=== PATIENT | female | born 1965 | race Caucasian/White ===

== ENCOUNTER 2017-01-26 10:48 | Day surgery (SDC) | payer BC ==
[~2017-01-26] VITALS: Ht 162.6 cm; Wt 107.0 kg
[~2017-01-26 10:48] MED LIST: ALBU18HF INH; BUDE10.22 INH; FEXO1TAB29 PO; MONT10TA6 PO; SERT100T PO
[2017-01-26 11:20] VITALS: BP 132/86
[2017-01-26] MEDS ORDERED: LACTATED RINGERS 1,000 ML IV SCH (11:22)
[2017-01-26] MEDS ORDERED: RANI150T4 PO (11:40)
[2017-01-26] MEDS ORDERED: PANT40TA5 PO (11:40)
[2017-01-26] MEDS ORDERED: DIPH25CA61 PO (11:40)
[2017-01-26] MEDS ORDERED: CETI1TAB6 PO (11:40)
[2017-01-26] MEDS ORDERED: TRINTELLIX PO (11:40)
[2017-01-26] MEDS ORDERED: EPINEPHRINE 1 MG/ML, 1ML ONE (12:16)
[2017-01-26] MEDS ORDERED: LIDOCAINE/PF 1%, 30ML ONE (12:16)
[2017-01-26] MEDS ORDERED: BACITRACIN OINT 500U/GM, 15 GM ONE (12:16)
[2017-01-26] MEDS ORDERED: COCAINE TOPICAL SOLN 4%, 4ML ONE (12:16)
[2017-01-26] MEDS ORDERED: OXYMETAZOLINE NASAL SPRAY 0.05%, 15ML ONE (12:16)
[2017-01-26] MEDS ORDERED: THROMBIN 5,000 UNIT VIAL TP ONE (12:16)
[2017-01-26] MEDS ORDERED: PROPOFOL 10 MG/ML, 20ML ONE ×2 (12:57)
[2017-01-26] MEDS ORDERED: SUCCINYLCHOLINE 20 MG/ML, 10ML ONE (12:58)
[2017-01-26] MEDS ORDERED: ROCURONIUM 10 MG/ML,10ML ONE (12:58)
[2017-01-26] MEDS ORDERED: KETAMINE 10 MG/ML, 20ML ONE (12:59)
[2017-01-26] MEDS ORDERED: CEFAZOLIN 1,000 MG ONE (13:01)
[2017-01-26] MEDS ORDERED: FENTANYL PF 100 MCG/2ML ONE (13:03)
[2017-01-26] MEDS ORDERED: MIDAZOLAM 1 MG/ML, 2ML ONE (13:03)
[2017-01-26] MEDS ORDERED: COCAINE TOPICAL SOLN 4%, 4ML TP ONE (13:35)
[2017-01-26] MEDS ORDERED: LIDOCAINE 1%-EPI 1:100K, 30ML INFIL ONE (13:36)
[2017-01-26] MEDS ORDERED: DEXAMETHASONE 4 MG/ML, 1ML ONE ×2 (13:38)
[2017-01-26] MEDS ORDERED: ONDANSETRON 2MG/ML, 2ML ONE (13:51)
[2017-01-26] MEDS ORDERED: METOCLOPRAMIDE 5 MG/ML, 2ML ONE (13:51)
[2017-01-26] MEDS ORDERED: METOCLOPRAMIDE 5 MG/ML, 2ML IV PRN (14:00)
[2017-01-26] MEDS ORDERED: LABETALOL 5MG/ML, 20ML IV PRN (14:00)
[2017-01-26] MEDS ORDERED: EPHEDRINE 50 MG/ML, 1ML IVPush PRN (14:00)
[2017-01-26] MEDS ORDERED: ALBUTEROL SULFATE 2.5 MG/3 ML NPPB PRN (14:00)
[2017-01-26] MEDS ORDERED: MEPERIDINE/PF 25MG/0.5ML IVPush PRN (14:00)
[2017-01-26] MEDS ORDERED: OXYcodone 5 MG/5 ML ORAL.SOL UDC PO PRN (14:00)
[2017-01-26] MEDS ORDERED: ACETAMINOPHEN 325 MG TABLET PO PRN (14:00)
[2017-01-26] MEDS ORDERED: hydrALAzine 20 MG/ML, 1ML IV PRN (14:00)
[2017-01-26] MEDS ORDERED: HYDROmorphone 1 MG/ML, 1ML IV PRN (14:00)
[2017-01-26] MEDS ORDERED: HYDROcodone/APAP 7.5-325MG/15ML UDC PO PRN (14:00)
[2017-01-26] MEDS ORDERED: PROMETHAZINE 25 MG/ML, 1ML IV PRN (14:00)
[2017-01-26] MEDS ORDERED: ONDANSETRON 2MG/ML, 2ML IVPush PRN (14:00)
[2017-01-26] MEDS ORDERED: METOPROLOL 1 MG/ML, 5ML IV PRN (14:00)
[2017-01-26] MEDS ORDERED: FENTANYL PF 100 MCG/2ML IV PRN (14:00)
[2017-01-26] MEDS ORDERED: OXYcodone 5 MG/5 ML ORAL.SOL UDC ONE (14:29)
[2017-01-26] MEDS ORDERED: MEPERIDINE/PF 25MG/0.5ML ONE (14:41)
== END 2017-01-26 18:00 | disposition home or self-care (01) ==
LOC: OUT 10:48
PROVIDERS: ATTEND Otolaryngology
DX: J34.89 Other specified disorders of nose and nasal sinuses (principal); G47.30 Sleep apnea, unspecified; Z88.5 Allergy status to narcotic agent; Z88.8 Allergy status to other drugs, medicaments and biological substances; Z91.040 Latex allergy status
CPT/HCPCS: 30140; 30520; J0171; J0330; J0690; J1100; J2175; J2250; J2405; J2704; J2765; J3010; J3490

== ENCOUNTER 2018-08-27 17:47 | Emergency (ER) | payer BC ==
[~2018-08-27] VITALS: Ht 162.6 cm; Wt 114.0 kg
[~2018-08-27 17:47] MED LIST changes: +CETI1TAB6 PO; +DIPH25CA61 PO; +PANT40TA5 PO; +RANI150T4 PO; +TRINTELLIX PO
[2018-08-27 17:57] VITALS: BP 152/82
[2018-08-27] MEDS ORDERED: HYDROcodone/APAP 5/325 TABLET ONE (18:28)
[2018-08-27] MEDS ORDERED: HYDROcodone/APAP 5/325 TABLET PO ONE (18:30)
--- NOTE | 2018-08-27 18:33 | NUR ---
PT MEDICATED PER ORDERS. UNDERSTANDS POC.
--- NOTE | 2018-08-27 19:11 | NUR ---
PT VERBALIZED SOME PAIN RELIEF AFTER NORCO. CRUTCHES AND CRUTCH TEACHING PROVIDED. D/C INSTRUCTIONS, MEDS & F/U APPT RV'WD WITH PT, SHE VERBALIZES UNDERSTANDING. RX GIVEN X2. ASSISTED PT OUT OF ED VIA WC WITH .
== END 2018-08-27 19:15 | disposition home or self-care (01) ==
LOC: ED 19:00
DX: S39.012A Strain of muscle, fascia and tendon of lower back, initial encounter (principal); S70.02XA Contusion of left hip, initial encounter; K21.9 Gastro-esophageal reflux disease without esophagitis; J45.909 Unspecified asthma, uncomplicated; W01.0XXA Fall on same level from slipping, tripping and stumbling without subsequent striking against object, initial encounter; Y93.89 Activity, other specified; Y92.89 Other specified places as the place of occurrence of the external cause; Y99.8 Other external cause status
CPT/HCPCS: 72110; 99283

== ENCOUNTER 2019-06-26 17:59 | Emergency (ER) | payer OTHER ==
[~2019-06-26] VITALS: Ht 165.1 cm; Wt 118.5 kg
--- NOTE | 2019-06-26 18:33 | NUR ---
TASK RN. PT STATES HX OF ASTHMA, STATES WORSE THE LAST 3 WEEKS. PT STATES SEEN AT [facility], ON PREDNISONE. PT WITH NO RESPIR DISTRESS, PROTECTING OWN AIRWAY WELL. PT STATE SOME CHEST TIGHNESS WELL. PT PLACED ON MONITORS, EKG COMPLETED. ERMD TO SEE.
[2019-06-26] MEDS ORDERED: ALBUTEROL/IPRATROPIUM 2.5MG/0.5MG, 3 ML ONE (19:12)
[2019-06-26 19:19] VITALS: BP 130/68
[2019-06-26] MEDS ORDERED: ALBUTEROL/IPRATROPIUM 2.5MG/0.5MG, 3 ML NPPB ONE (19:30)
== END 2019-06-26 20:20 | disposition home or self-care (01) ==
LOC: ED 18:53
DX: J45.41 Moderate persistent asthma with (acute) exacerbation (principal); R05 Cough; K21.9 Gastro-esophageal reflux disease without esophagitis; R06.00 Dyspnea, unspecified; R94.31 Abnormal electrocardiogram [ECG] [EKG]
CPT/HCPCS: 71045; 93005; 94640; 99283

== ENCOUNTER 2019-08-03 13:19 | Outpatient (CLI) | payer OTHER | END 2019-08-03 23:59 | disposition home or self-care (01) | LOC: CVU 13:19 | PROVIDERS: ATTEND Internal Medicine Cardiovascular Disease | DX: I51.7 Cardiomegaly (principal); Z87.891 Personal history of nicotine dependence | CPT/HCPCS: 93306 ==

== ENCOUNTER → 2020-01-14 | Outpatient (CLI) | payer OTHER ==
[~2020-01-14] MED LIST changes: +OMNIPAQUE 350 MG/ML, 100ML BOTTLE ONE; -PANT40TA5 PO; +PANT40TA6 PO
[2020-01-14 12:05] LABS: CREATININE 0.82 mg/dL (0.55-1.02)
== END | disposition home or self-care (01) ==
LOC: RAD 11:29
PROVIDERS: ATTEND Family Medicine
DX: K76.0 Fatty (change of) liver, not elsewhere classified (principal); K57.30 Diverticulosis of large intestine without perforation or abscess without bleeding; J98.4 Other disorders of lung; K44.9 Diaphragmatic hernia without obstruction or gangrene
CPT/HCPCS: 36415; 74177; 82565; Q9967

== ENCOUNTER → 2020-02-05 | Outpatient (CLI) | payer OTHER ==
[~2020-02-05] MED LIST changes: -OMNIPAQUE 350 MG/ML, 100ML BOTTLE ONE
== END | disposition home or self-care (01) ==
LOC: CFH 07:41
PROVIDERS: ATTEND Physician Assistant Medical
DX: R94.31 Abnormal electrocardiogram [ECG] [EKG] (principal); R07.89 Other chest pain
CPT/HCPCS: 78452; 93017; A9502